=== PATIENT | male | born 1975 | race Caucasian/White ===

== ENCOUNTER 2020-08-04 13:10 | Emergency (ER) | payer OTHER ==
[~2020-08-04] VITALS: Ht 182.9 cm; Wt 77.1 kg
[2020-08-04] MEDS ORDERED: Veetids 500500 MG PO (13:58)
== END 2020-08-04 14:14 | disposition home or self-care (01) ==
LOC: ER 13:10
DX: J02.0 Streptococcal pharyngitis (principal); F17.200 Nicotine dependence, unspecified, uncomplicated
CPT/HCPCS: 87430; 96372; 99283-25; J1885

== ENCOUNTER 2020-08-30 14:22 | Emergency (ER) | payer OTHER ==
[~2020-08-30] VITALS: Ht 182.9 cm; Wt 77.1 kg
[~2020-08-30 14:22] MED LIST: Veetids 500500 MG PO
[2020-08-30] MEDS ORDERED: Permethrin60 GM TOP (14:56)
== END 2020-08-30 15:04 | disposition home or self-care (01) ==
LOC: ER 14:22
DX: B86 Scabies (principal); F17.200 Nicotine dependence, unspecified, uncomplicated
CPT/HCPCS: 99282

== ENCOUNTER 2020-12-09 00:10 | Emergency (ER) | payer OTHER ==
[~2020-12-09] VITALS: Ht 182.9 cm; Wt 79.4 kg
[~2020-12-09 00:10] MED LIST changes: +Permethrin60 GM TOP
== END 2020-12-09 01:20 | disposition home or self-care (01) ==
LOC: ER 00:10
DX: S50.811A Abrasion of right forearm, initial encounter (principal); W11.XXXA Fall on and from ladder, initial encounter; F17.200 Nicotine dependence, unspecified, uncomplicated
CPT/HCPCS: 73090; 99283-25